=== PATIENT | female | born 2000 | race Caucasian/White ===

== ENCOUNTER 2022-04-24 20:04 | Inpatient (IN) | payer OTHER, MEDICAID ==
[2022-04-24] VITALS (12 sets, daily range): BP systolic 135–165; BP diastolic 71–100; PULSE 63–101; TEMP 97.8–99.4
[~2022-04-24] VITALS: Ht 175.3 cm; Wt 81.4 kg
--- NOTE | 2022-04-24 21:15 | NUR ---
2114 This RN assumes care of pt. 2119Dr. Hamilton to bedside. Reviews plan of care with pt. NENAE per Dr. Hamilton /+1. Pt up to bathroom to attempt void for UDS. 2124Pt unable to void. Back to bed. Dr. Hamilton at bedside. Orders for straight cath for UDS. Pt agreeable to POC. 2134Straight cath at this time by this RN. UDS to lab. Pt wedge left. Consent forms explained and signed. 220Pt with emesis and bearing down with ctx. SVE by this RN 8-9cm. Coached throught breathing through contractions. Pt requesting epidural. C. Gerard PIER MASTER on unit and notified. LR bolus infusing. 5C. Gerard at bedside for epidural placement. Pt to edge of bed. FHR tracing intermittently due to maternal position. 221Epidural placed and test dose by C. Stubs PIER MASTER. See anesthesia record. 2225Patient wedge left. EFM adjusted and tracing well. Plan of care and safety precautions reviewed with pt who verbalizes understanding. Call light within reach. 2238Late decel noted. High left lateral. 2250Intermittent late decel noted. Patient right lateral. Plan of care discussed. 2300Report to Manuel Martinez RN who resumes care of pt.
[2022-04-24 21:28] LABS: BASO % 0.2 % (0.0-2.0); GRAN # 12.4 K/mm3 (1.4-6.5); GRAN % 85.1 % (42.2-75.2); LYMPH # 1.3 K/mm3 (1.2-3.4); LYMPH % 8.8 % (20.0-51.0); MEAN CELL VOLUME 90 fl (80.0-100.0); MEAN CORPUSCULAR HEMOGLOBIN 31 pg (27-31); MEAN CORPUSCULAR HGB CONC 34 g/dl (33.0-37.0); MEAN PLATELET VOLUME 11.6 fl (7.4-10.4); MONO # 0.8 K/mm3 (0.1-0.6); MONO % 5.2 % (1.7-9.3); PLATELET COUNT 233 K/mm3 (130-400); REDCELL DISTRIBUTION WIDTH-CV 12.7 % (11.5-14.5)
[2022-04-24 21:29] LABS: HEMATOCRIT 34.9 % (37.0-47.0)
[2022-04-24 21:56] LABS: TRICYCLIC ANTIDEPRESS URINE NEGATIVE
[2022-04-25] VITALS (13 sets, daily range): BP systolic 120–152; BP diastolic 68–91; PULSE 65–96; TEMP 97.8–98.9
--- NOTE | 2022-04-25 00:11 | NUR ---
2310 COMPLETE 2315 PT IS UP IN FOOT PEDALS TO START PUSHING. FHR 145, MOD VARIBILITY, VARIABLES WITH PUSHING 2356 PROLONGED DECEL WITH PUSHING, DR DUMONT NOTIFIED TO COME IN TO EVALUATE 235 DR DUMONT IN ROOM, SVE, PT CONTINUES TO PUSH. 0007 VACUUM PLACED ON BY DR DUMONT, ONE POP OFF AT 40 SECS. AND ONE PULL PT CONTINUED TO PUSH WITH UC'S. 0009 VACUUM APPLIED 2ND TIME WITH 2 PULLS, ONE POP OFF AT 0010 0011 BABY GIRLS DELVIERED AND PLACED ON MOMS ABD, BABY DRIED AND STIMULATED BY Caitlyn JUAREZ REPRODUCTION MACHINE LOADER NURSE. CORD WAS CLAMPED AND CUT. BABY TO WARMER TO DRY AND EVALUATE. 0013 PLACENTA WAS DELIVERED. WITH A MANUAL EXTRACTION OF A SMALL PIECE OF PLACENTA. PP OXYTOCIN BOLUS WAS STARTED VIA PUMP. PT TOLERATED IT WELL. CORD GASES WERE DONE. CORD BLOOD OBTAINED, CORD STAT WAS OBTAINTED AND SENT TO LAB.
--- NOTE | 2022-04-25 07:41 | NUR ---
PT LYING IN BED HOLDING BABY IN ARMS. MILD CRAMPING NOTED TO LOWER ABD. DENIES PASSING CLOTS BUT HAS NOT BEEN UP MUCH YET SINCE . MOTRIN AND SENNA GIVEN. WILL ORDER BREAKFAST, SNACKED THIS AM. JUICE AND WATER PROVIDED. ASSESSMENT COMPLETE, UTEROUS FIRM. CALL LIGHT WI REACH. TO CALL PRIOR TO BREAST FEED FOR BLOOD SUGAR CHECK ON BABY. LAST FEEDING WAS AT 6AM.
--- NOTE | 2022-04-25 10:17 | NUR ---
Initial visit; Parents thanked Sales Department Manager for offering congratulations and God's blessings for the of their daughter. Sales Department Manager thanked family for choosing [facility].
--- NOTE | 2022-04-25 10:48 | NUR ---
Pt returns from going outside after smoking-okay by dr lai. Doctor rounds - no concerns. Mom encouraged to breastfeed. Offered help, states she will let me know if needs, baby latched well last feeding. Informed her that baby voided and blood sugar was 63. Mild cramps, no need for meds at this time.
--- NOTE | 2022-04-25 15:01 | NUR ---
MOM GIVEN REMINDER TO CALL NURSE PRIOR TO FEEDINGS. BABY SWADDLED IN ARM AND HAD JUST ATE LESS THAN 1 HR AGO. MOTRIN GIVEN FOR CRAMPS. BLEEDING WNL, NO CLOTS. WILL CONT TO MONITOR.
--- NOTE | 2022-04-25 15:48 | NUR ---
FEEDING BABY AND BONDING- FOB AT BEDSIDE TALKING TO BABY WELL. NEEDS MET.
--- NOTE | 2022-04-25 18:01 | NUR ---
PT REPORT BM TODAY. PM SENNA GIVEN. PAIN TOLERABLE. HOLDING BABY. CALL LIGHT WI REACH. NEEDS MET.
[2022-04-26 03:30] VITALS: BP 118/76; PULSE 76; TEMP 98.3
[2022-04-26 08:40] VITALS: BP 145/94; PULSE 58; TEMP 98.2
--- NOTE | 2022-04-26 11:39 | NUR ---
SW met with pt to speak about dc needs. Pt reports that her boyfriend will be picking her up and she will staying with her mother in [place], [place]. Reason for consult:CHARMAINE Cowart informed SW that they called her mother and mother informed RN that she was unaware that she was staying with her. Pt informed SW she was not sure why she said that, but will be going to her mothers house where she lives. * pt has HX of drug use. SW asked pt if she needed any other resourses and she denied. No other needs at this time.
--- NOTE | 2022-04-26 15:45 | NUR ---
DISCHARGE INSTRUCTIONS REVIEWED WITH PATIENT. QUESTIONS ANSWERED.
--- NOTE | 2022-04-27 12:47 | NUR ---
Due to mother treating opioid use with methadone during resulting in a high CIWA score for baby, CPS reports made. Case#[id number]
== END 2022-04-26 16:00 | disposition home or self-care (01) | DRG 806 ==
LOC: LDRO 20:04 → LDR 21:21 → OB 04-25 04:04
PROVIDERS: ADMIT Obstetrics & Gynecology
PROC: 10D07Z6 Extraction of Products of Conception, Vacuum, Via Natural or Artificial Opening (ICD-10-PCS; principal; 2022-04-25)
PROC: 0UQMXZZ Repair Vulva, External Approach (ICD-10-PCS; 2022-04-25)
DX: O99.324 Drug use complicating childbirth (principal); O71.4 Obstetric high vaginal laceration alone; Z37.0 Single live birth; O16.5 Unspecified maternal hypertension, complicating the puerperium; O76 Abnormality in fetal heart rate and rhythm complicating labor and delivery; O99.334 Smoking (tobacco) complicating childbirth; Z3A.39 39 weeks gestation of pregnancy
CPT/HCPCS: J0690; J2405; J2590; J7120